=== PATIENT | female | born 1955 | race Caucasian/White ===

== ENCOUNTER → 2019-04-29 10:48 | Outpatient (CLI) | payer SELFPAY ==
[2019-04-29 12:59] LABS: AST(SGOT) 20 U/L (15-37); Alanine Aminotransfer ALT/SGPT 39 U/L (13-56); Albumin, Serum 3.9 g/dL (3.2-5.0); Alkaline Phosphatase 63 U/L (45-117); Bilirubin, Direct 0.08 mg/dL (0.00-0.30); Cholesterol 247 mg/dL (200); High Density Lipoprotein 35 mg/dL; Protein, Total 7.9 g/dL (6.4-8.2); Triglycerides 203 mg/dL; Very Low Density Lipoprotein 41 mg/dL (5-40)
[2019-04-29 13:34] VITALS: BMI 34.2
== END ==
PROVIDERS: Nurse Practitioner Family; Family Provider Family Medicine; PCP Family Medicine; Referring Provider Internal Medicine Cardiovascular Disease; Visit Provider Internal Medicine Cardiovascular Disease
DX: E78.5 Hyperlipidemia, unspecified (principal)
CPT/HCPCS: 36415; 80061; 80076